=== PATIENT | female | born 1975 | race Caucasian/White ===

== ENCOUNTER 2016-07-11 12:53 | Emergency (ER) | payer OTHER ==
[~2016-07-11] VITALS: Wt 95.3 kg
[~2016-07-11 12:53] MED LIST: 'PARAFON FORTE500 M1 PO; ACID CONTROLLER20 M1 PO; ACIPHEX20 MG PO; ALBUTEROL0.09 MG/A2 IH; ALBUTEROL0.09 MG/A2 INH; AMOXICILLIN500 M2 PO; AMOXICILLIN500 M3 PO; AMOXICILLIN500 MG PO; ANAPROX DS550 MG PO; AUGMENTIN 875-875 MG PO; AUGMENTIN 875875 MG PO; AVPAK AZITHROM250 M1 PO; BACTRIM DS 8001 TA1 PO; CIPRO500 MG PO; CIPROFLOXACIN500 MG PO; CLARITIN10 MG PO; CLINDAMYCIN HC300 MG PO; COMBIVENT1 ARO IH; COMPAZINE10 MG PO; DARVOCET A500 51 TAB PO; DARVOCET N 1001 TAB PO; DO NOT PROFILE T1 EA; DOXYCYCLINE HY100 MG PO; EES400 MG PO; FERROUS SULFAT325 MG PO; FLEXERIL5 MG PO; FLONASE ALLERG9.9 ML NS; Flovent 44 Mcg44 MCG INH; HYDROCODONE BIT1 T11 PO; IBU800 MG PO; KEFLEX500 MG PO; LAMICTAL ODT25 MG MM; LAMICTAL ODT50 MG MM; LIDOCAINE VISC100 ML MM; MACROBID100 M1 PO; MEDROL DOSEPAK4 MG PO; MIRENA52 MG IU; MOTRIN800 MG PO; MULTIPLE VITAMI1 CTB PO; Motrin,Rufen800 MG PO; NAPROSYN500 MG PO; NORCO 325 MG-51 TAB PO; PEN-VK500 MG PO; PENICILLIN VK500 MG PO; PERIDEX 480 ML480 ML PO; PHENERGAN W/ DE30 ML PO; PIROXICAN10 MG PO; PREDNICOT10 MG PO; PREDNICOT20 MG PO; PREDNISONE10 MG PO; PROVENTIL0.09 MG/AC IH; PYRIDIUM200 M1 PO; Peridex 473 ML473 ML PO; ROBITUSSIN AC 110 ML PO; ROBITUSSIN DM 105 ML PO; TESSALON PERLE100 M1 PO; TESSALON PERLE200 MG PO; TORADOL10 MG PO; TRAZODO50 MG PO; TRIMOX500 MG PO; TYLENOL325 M1 PO; ULTRAM50 MG PO; VENTOLIN H0.09 MG/AC INH; VIBRAMYCIN100 MG PO; VICODIN 5/500 505 MG PO; VICODIN ES 7501 TAB PO; ZITHROMAX Z PA250 MG PO; ZITHROMAX Z-PA250 MG PO; ZITHROMAX250 MG PO; ZOFRAN4 MG PO; ZYRTEC10 M3 PO; ZYRTEC10 MG PO
[2016-07-11 13:12] VITALS: BP 150/90
[2016-07-11] MEDS ORDERED: VITAMINS FOR HA1 CAP PO (13:13)
[2016-07-11] MEDS ORDERED: PREDNISONE10 MG PO (13:38)
== END 2016-07-11 13:36 | disposition home or self-care (01) ==
LOC: ED 12:53
DX: L25.9 Unspecified contact dermatitis, unspecified cause (principal); F17.200 Nicotine dependence, unspecified, uncomplicated; Z98.890 Other specified postprocedural states; Z79.899 Other long term (current) drug therapy

== ENCOUNTER 2016-07-29 16:15 | Emergency (ER) | payer OTHER ==
[~2016-07-29] VITALS: Wt 95.3 kg
[~2016-07-29 16:15] MED LIST changes: +VITAMINS FOR HA1 CAP PO
[2016-07-29 16:18] VITALS: BP 142/99
[2016-07-29] MEDS ORDERED: Motrin,Rufen400 MG PO (17:19)
== END 2016-07-29 17:37 | disposition home or self-care (01) ==
LOC: ED 16:15
DX: S93.401A Sprain of unspecified ligament of right ankle, initial encounter (principal); F17.200 Nicotine dependence, unspecified, uncomplicated; Z88.8 Allergy status to other drugs, medicaments and biological substances; Z79.899 Other long term (current) drug therapy; W18.39XA Other fall on same level, initial encounter; Y93.89 Activity, other specified; Y92.89 Other specified places as the place of occurrence of the external cause; Y99.8 Other external cause status

== ENCOUNTER 2016-12-24 14:29 | Emergency (ER) | payer OTHER ==
[~2016-12-24] VITALS: Ht 160 cm; Wt 107.5 kg
[~2016-12-24 14:29] MED LIST changes: +CLINDAMYCIN150 MG PO; +Motrin,Rufen400 MG PO
[2016-12-24 14:34] VITALS: BP 146/84
[2016-12-24 14:46] LABS: BILIRUBIN NEGATIVE (NEGATIVE); BLOOD 3+ (NEGATIVE); CLARITY CLOUDY (CLEAR); COLOR YELLOW (YELLOW); GLUCOSE NEGATIVE (NEGATIVE); KETONE NEGATIVE (NEGATIVE); LEUKO ESTERASE 3+ (NEGATIVE); NITRITE NEGATIVE (NEGATIVE); SPECIFIC GRAVITY <= 1.005 (1.005-1.030); UROBILINOGEN 0.2 E.U./dl (0.2-1.0)
[2016-12-24 14:52] LABS: BACTERIA 4+; WBC TNTC wbc/hpf (0-5)
[2016-12-24] MEDS ORDERED: PYRIDIUM100 MG PO (15:00)
[2016-12-24] MEDS ORDERED: MACROBID100 M1 PO (15:00)
== END 2016-12-24 19:28 | disposition home or self-care (01) ==
LOC: ED 14:29
PROVIDERS: Physician Assistant
DX: N39.0 Urinary tract infection, site not specified (principal); F17.200 Nicotine dependence, unspecified, uncomplicated; Z88.8 Allergy status to other drugs, medicaments and biological substances; Z79.899 Other long term (current) drug therapy

== ENCOUNTER 2017-02-24 19:55 | Emergency (ER) | payer OTHER ==
[~2017-02-24] VITALS: Ht 157.4 cm; Wt 108.9 kg
[~2017-02-24 19:55] MED LIST changes: +PYRIDIUM100 MG PO
[2017-02-24 20:02] VITALS: BP 152/85
[2017-02-24] MEDS ORDERED: LAMICTAL ODT100 MG MM (20:06)
[2017-02-24] MEDS ORDERED: SEROQUEL50 MG PO (20:07)
== END 2017-02-24 20:14 | disposition home or self-care (01) ==
LOC: ED 19:55
DX: S86.911A Strain of unspecified muscle(s) and tendon(s) at lower leg level, right leg, initial encounter (principal); F17.200 Nicotine dependence, unspecified, uncomplicated; Z88.8 Allergy status to other drugs, medicaments and biological substances; X58.XXXA Exposure to other specified factors, initial encounter; Y93.89 Activity, other specified; Y92.89 Other specified places as the place of occurrence of the external cause; Y99.8 Other external cause status

== ENCOUNTER 2017-08-06 15:45 | Emergency (ER) | payer OTHER ==
[~2017-08-06] VITALS: Ht 160 cm; Wt 112.5 kg
[~2017-08-06 15:45] MED LIST changes: +LAMICTAL ODT100 MG MM; +SEROQUEL50 MG PO
[2017-08-06 15:50] VITALS: BP 125/76
[2017-08-06] MEDS ORDERED: PENICILLIN-VK500 MG PO (16:13)
[2017-08-06] MEDS ORDERED: TYLENOL325 M1 PO (16:13)
[2017-08-06] MEDS ORDERED: NAPROSYN500 MG PO (16:13)
== END 2017-08-06 16:16 | disposition home or self-care (01) ==
LOC: ED 15:45
DX: K02.9 Dental caries, unspecified (principal); Z98.890 Other specified postprocedural states; Z79.899 Other long term (current) drug therapy; Z88.8 Allergy status to other drugs, medicaments and biological substances

== ENCOUNTER 2018-04-12 16:19 | Emergency (ER) | payer OTHER ==
[~2018-04-12] VITALS: Ht 157.4 cm; Wt 105.2 kg
[~2018-04-12 16:19] MED LIST changes: +PENICILLIN-VK500 MG PO
[2018-04-12 16:20] VITALS: BP 135/81
[2018-04-12] MEDS ORDERED: CLARITIN10 MG PO (16:31)
[2018-04-12] MEDS ORDERED: PREDNISONE10 MG PO (16:31)
== END 2018-04-12 17:09 | disposition home or self-care (01) ==
LOC: ED 16:19
DX: J20.9 Acute bronchitis, unspecified (principal); R03.0 Elevated blood-pressure reading, without diagnosis of hypertension; F17.200 Nicotine dependence, unspecified, uncomplicated; Z88.8 Allergy status to other drugs, medicaments and biological substances; Z79.2 Long term (current) use of antibiotics; Z79.899 Other long term (current) drug therapy

== ENCOUNTER 2018-11-23 17:57 | Emergency (ER) | payer OTHER ==
[~2018-11-23] VITALS: Ht 160 cm; Wt 102.1 kg
[~2018-11-23 17:57] MED LIST changes: +CYCLOBENZAPRINE10 MG PO; +HYCODAN/HYDROMET5 ML PO
== END 2018-11-23 18:34 | disposition home or self-care (01) ==
LOC: ED 17:57
DX: T16.2XXA Foreign body in left ear, initial encounter (principal); E66.9 Obesity, unspecified; Z88.8 Allergy status to other drugs, medicaments and biological substances; Z79.899 Other long term (current) drug therapy; Z87.891 Personal history of nicotine dependence; X58.XXXA Exposure to other specified factors, initial encounter; Y93.89 Activity, other specified; Y92.89 Other specified places as the place of occurrence of the external cause; Y99.8 Other external cause status

== ENCOUNTER 2019-01-01 18:31 | Emergency (ER) | payer OTHER ==
[~2019-01-01] VITALS: Ht 160 cm; Wt 108.0 kg
[2019-01-01 18:34] VITALS: BP 145/86
[2019-01-01] MEDS ORDERED: ZITHROMAX250 MG PO (19:33)
[2019-01-01] MEDS ORDERED: TESSALON PERLE100 M1 PO (19:33)
== END 2019-01-01 19:39 | disposition home or self-care (01) ==
LOC: ED 18:31
DX: J20.9 Acute bronchitis, unspecified (principal); F17.210 Nicotine dependence, cigarettes, uncomplicated; Z88.8 Allergy status to other drugs, medicaments and biological substances; Z79.899 Other long term (current) drug therapy

== ENCOUNTER 2019-02-01 12:49 | Emergency (ER) | payer OTHER ==
[~2019-02-01] VITALS: Ht 160 cm; Wt 106.6 kg
[2019-02-01 12:49] VITALS: BP 132/87
[2019-02-01] MEDS ORDERED: PREDNISONE20 M1 PO (15:41)
[2019-02-01] MEDS ORDERED: ZITHROMAX500 MG PO (15:41)
== END 2019-02-01 15:48 | disposition home or self-care (01) ==
LOC: ED 12:49
DX: J20.9 Acute bronchitis, unspecified (principal); J45.909 Unspecified asthma, uncomplicated; E11.9 Type 2 diabetes mellitus without complications; F17.200 Nicotine dependence, unspecified, uncomplicated; Z88.8 Allergy status to other drugs, medicaments and biological substances; Z79.899 Other long term (current) drug therapy

== ENCOUNTER 2019-04-08 22:42 | Emergency (ER) | payer OTHER ==
[~2019-04-08] VITALS: Ht 152.4 cm; Wt 107.5 kg
[~2019-04-08 22:42] MED LIST changes: +PREDNISONE20 M1 PO; +ZITHROMAX500 MG PO
[2019-04-08 22:44] VITALS: BP 139/87
[2019-04-09] MEDS ORDERED: PREDNISONE20 M1 PO (00:06)
[2019-04-09] MEDS ORDERED: ZITHROMAX250 MG PO (00:06)
[2019-04-09] MEDS ORDERED: TESSALON PERLE100 M1 PO (00:06)
== END 2019-04-09 00:22 | disposition home or self-care (01) ==
LOC: ED 22:42
DX: J45.909 Unspecified asthma, uncomplicated (principal); I10 Essential (primary) hypertension; Z88.8 Allergy status to other drugs, medicaments and biological substances; Z79.899 Other long term (current) drug therapy

== ENCOUNTER 2020-01-14 03:38 | Emergency (ER) | payer OTHER ==
[~2020-01-14] VITALS: Ht 157.4 cm; Wt 97.5 kg
[2020-01-14 03:46] VITALS: BP 132/76
[2020-01-14 04:50] LABS: BASO # 0.1 10*3/uL (0.0-0.1); BASO % 0.4 % (0.0-1.0); HEMATOCRIT 46.3 % (37.0-47.0); LYMPH # 3.1 10*3/uL (1.3-4.4); LYMPH % 22.3 % (27.0-41.0); MEAN CORPUSCULAR HGB 29.7 pg (27.0-31.0); MEAN PLATELET VOLUME 9.2 fl (9.6-12.3); MONO # 1.5 10*3/uL (0.1-1.0); MONO % 10.8 % (3.0-9.0); NEUT % 65.8 % (47.0-73.0); PLATELET COUNT AUTOMATED 240 10*3/uL (130-400); RED BLOOD COUNT 4.98 10*6/uL (4.10-5.10); WHITE BLOOD COUNT 13.7 10*3/uL (4.8-10.8)
[2020-01-14 05:20] LABS: COLOR Yellow (YELLOW)
[2020-01-14 05:21] LABS: BILIRUBIN Negative; BLOOD Negative (NEGATIVE); CLARITY Cloudy (CLEAR); GLUCOSE Negative; KETONE Negative; LEUKO ESTERASE 2+ (NEGATIVE); NITRITE Negative (NEGATIVE); PH 5.5 (4.5-8.0); SPECIFIC GRAVITY 1.015 (1.001-1.030)
[2020-01-14 05:22] LABS: BACTERIA 1+; EPITHELIAL CELLS TNTC
[2020-01-14 05:42] LABS: BUN 11 mg/dl (7-24); CHLORIDE 105 mmol/L (98-107); POTASSIUM 3.6 mmol/L (3.5-5.1); SODIUM 138 mmol/L (136-145)
== END 2020-01-14 05:15 | disposition left against medical advice (07) ==
LOC: ED 03:38
PROVIDERS: Emergency Medicine Emergency Medical Services
DX: K59.00 Constipation, unspecified (principal); I10 Essential (primary) hypertension; J45.909 Unspecified asthma, uncomplicated; F17.200 Nicotine dependence, unspecified, uncomplicated; Z88.8 Allergy status to other drugs, medicaments and biological substances; Z53.29 Procedure and treatment not carried out because of patient's decision for other reasons; Z79.899 Other long term (current) drug therapy

== ENCOUNTER 2020-03-10 21:02 | Emergency (ER) | payer OTHER ==
[~2020-03-10] VITALS: Ht 160 cm; Wt 102.1 kg
[2020-03-10 21:16] VITALS: BP 135/98
[2020-03-10] MEDS ORDERED: ROBITUSSIN5 ML PO (21:21)
[2020-03-10] MEDS ORDERED: GLUCOPHAGE500 M1 PO (21:22)
[2020-03-10] MEDS ORDERED: TESSALON PERLE100 MG PO (23:43)
== END 2020-03-11 00:30 | disposition home or self-care (01) ==
LOC: ED 21:02
DX: J06.9 Acute upper respiratory infection, unspecified (principal); I10 Essential (primary) hypertension; J45.909 Unspecified asthma, uncomplicated; F17.200 Nicotine dependence, unspecified, uncomplicated; Z88.8 Allergy status to other drugs, medicaments and biological substances; Z79.899 Other long term (current) drug therapy

== ENCOUNTER 2020-05-18 13:18 | Emergency (ER) | payer OTHER ==
[~2020-05-18] VITALS: Ht 160 cm; Wt 97.5 kg
[~2020-05-18 13:18] MED LIST changes: +GLUCOPHAGE500 M1 PO; +ROBITUSSIN5 ML PO; +TESSALON PERLE100 MG PO
[2020-05-18 13:23] VITALS: BP 129/82
[2020-05-18 14:11] LABS: BASO % 0.3 % (0.0-1.0); EOS % 0.1 % (1.0-4.0); HEMATOCRIT 47.4 % (37.0-47.0); LYMPH # 2.5 10*3/uL (1.3-4.4); LYMPH % 15.7 % (27.0-41.0); MEAN CORPUSCULAR HGB 30.1 pg (27.0-31.0); MEAN CORPUSCULAR HGB CONC 33.1 g/dl (33.0-37.0); MEAN PLATELET VOLUME 9.1 fl (9.6-12.3); MONO # 1.1 10*3/uL (0.1-1.0); MONO % 6.6 % (3.0-9.0); NEUT # 12.2 10*3/uL (2.3-7.9); NEUT % 76.8 % (47.0-73.0); PLATELET COUNT AUTOMATED 277 10*3/uL (130-400); RED BLOOD COUNT 5.21 10*6/uL (4.10-5.10); RED CELL DISTRI WIDTH 12.5 % (0-14.5); WHITE BLOOD COUNT 15.9 10*3/uL (4.8-10.8)
[2020-05-18 14:27] LABS: ALBUMIN 3.4 gm/dl (3.1-4.5); ALKALINE PHOSPHATASE 62 U/L (45-117); BUN 8 mg/dl (7-24); CHLORIDE 104 mmol/L (98-107); CREATININE 0.71 mg/dL (0.55-1.02); POTASSIUM 4.3 mmol/L (3.5-5.1); SGOT/AST 12 IU/L (3-35); SGPT/ALT 26 U/L (12-78); SODIUM 136 mmol/L (136-145); TOTAL PROTEIN 8.2 gm/dL (6.4-8.2)
[2020-05-18 15:46] LABS: BILIRUBIN Negative (Negative); BLOOD 1+ (Negative); CLARITY Cloudy (Clear); COLOR Dark Yellow (Yellow); GLUCOSE Negative (Negative); KETONE Trace (Negative); LEUKO ESTERASE 2+ (Negative); NITRITE Negative (Negative); PH 5.5 (4.5-8.0); SPECIFIC GRAVITY 1.025 (1.001-1.030)
[2020-05-18 16:03] LABS: BACTERIA 1+; WBC 21-30 wbc/hpf (0-5)
[2020-05-18] MEDS ORDERED: KRISTALOSE10 GM PO (16:21)
[2020-05-18] MEDS ORDERED: CEFUROXIME AXE500 MG PO (16:21)
== END 2020-05-18 16:40 | disposition home or self-care (01) ==
LOC: ED 13:18
PROVIDERS: Nurse Practitioner
DX: N39.0 Urinary tract infection, site not specified (principal); K59.00 Constipation, unspecified; E11.9 Type 2 diabetes mellitus without complications; F17.200 Nicotine dependence, unspecified, uncomplicated; Z88.8 Allergy status to other drugs, medicaments and biological substances; Z79.899 Other long term (current) drug therapy; Z98.890 Other specified postprocedural states

== ENCOUNTER 2020-07-10 21:40 | Emergency (ER) | payer OTHER ==
[~2020-07-10] VITALS: Ht 160 cm; Wt 106.6 kg
[~2020-07-10 21:40] MED LIST changes: +CEFUROXIME AXE500 MG PO; +KRISTALOSE10 GM PO
[2020-07-10 21:52] VITALS: BP 146/82
[2020-07-10 22:59] LABS: BASO # 0.1 10*3/uL (0.0-0.1); BASO % 0.5 % (0.0-1.0); HEMATOCRIT 43.9 % (37.0-47.0); LYMPH % 24.9 % (27.0-41.0); MEAN CELL VOLUME 91.8 fl (81.0-99.0); MEAN CORPUSCULAR HGB 30.3 pg (27.0-31.0); MEAN PLATELET VOLUME 9.2 fl (9.6-12.3); MONO # 1.3 10*3/uL (0.1-1.0); MONO % 7.9 % (3.0-9.0); NEUT # 10.5 10*3/uL (2.3-7.9); NEUT % 66.2 % (47.0-73.0); PLATELET COUNT AUTOMATED 261 10*3/uL (130-400); RED BLOOD COUNT 4.78 10*6/uL (4.10-5.10); RED CELL DISTRI WIDTH 11.9 % (0-14.5); WHITE BLOOD COUNT 15.9 10*3/uL (4.8-10.8)
[2020-07-10 23:16] LABS: ALBUMIN 3.1 gm/dl (3.1-4.5); ALKALINE PHOSPHATASE 54 U/L (45-117); BUN 8 mg/dl (7-24); CHLORIDE 103 mmol/L (98-107); CREATININE 0.67 mg/dL (0.55-1.02); POTASSIUM 3.3 mmol/L (3.5-5.1); SGOT/AST 19 IU/L (3-35); SGPT/ALT 26 U/L (12-78); SODIUM 139 mmol/L (136-145); TOTAL PROTEIN 7.5 gm/dL (6.4-8.2)
[2020-07-10 23:18] LABS: BILIRUBIN Negative (Negative); BLOOD Trace-Intact (Negative); CLARITY Cloudy (Clear); COLOR Yellow (Yellow); GLUCOSE Negative (Negative); KETONE Trace (Negative); LEUKO ESTERASE 2+ (Negative); NITRITE Positive (Negative); PH 6.5 (4.5-8.0); UROBILINOGEN 0.2 E.U./dl (0.0-1.0)
[2020-07-10 23:40] LABS: BACTERIA 2+; WBC 21-30 wbc/hpf (0-5)
[2020-07-10 23:41] LABS: EPITHELIAL CELLS 16-20
== END 2020-07-10 23:52 | disposition left against medical advice (07) ==
LOC: ED 21:40
PROVIDERS: Emergency Medicine
DX: R11.10 Vomiting, unspecified (principal); R19.7 Diarrhea, unspecified; I10 Essential (primary) hypertension; J45.909 Unspecified asthma, uncomplicated; F17.200 Nicotine dependence, unspecified, uncomplicated; Z88.8 Allergy status to other drugs, medicaments and biological substances; Z79.899 Other long term (current) drug therapy; Z98.890 Other specified postprocedural states

== ENCOUNTER 2020-08-30 17:45 | Emergency (ER) | payer OTHER ==
[~2020-08-30] VITALS: Wt 90.7 kg
[2020-08-30 18:00] VITALS: BP 141/80
[2020-08-30] MEDS ORDERED: FLONASE ALLERG9.9 ML NAS (18:12)
== END 2020-08-30 18:17 | disposition home or self-care (01) ==
LOC: ED 17:45
DX: J32.9 Chronic sinusitis, unspecified (principal); F17.200 Nicotine dependence, unspecified, uncomplicated; Z88.8 Allergy status to other drugs, medicaments and biological substances; Z79.899 Other long term (current) drug therapy; Z79.84 Long term (current) use of oral hypoglycemic drugs; Z98.890 Other specified postprocedural states

== ENCOUNTER 2021-02-28 22:32 | Emergency (ER) | payer OTHER ==
[~2021-02-28] VITALS: Ht 160 cm; Wt 103.0 kg
[~2021-02-28 22:32] MED LIST changes: +FLONASE ALLERG9.9 ML NAS
[2021-02-28 22:45] VITALS: BP 136/77
[2021-02-28] MEDS ORDERED: NAPROXEN250 MG PO (23:10)
== END 2021-02-28 23:39 | disposition home or self-care (01) ==
LOC: ED 22:32
DX: M25.532 Pain in left wrist (principal); Z88.8 Allergy status to other drugs, medicaments and biological substances; Z79.899 Other long term (current) drug therapy

== ENCOUNTER 2021-04-28 18:21 | Emergency (ER) | payer OTHER ==
[~2021-04-28 18:21] MED LIST changes: +NAPROXEN250 MG PO
[2021-04-28 18:43] VITALS: BP 145/86
== END 2021-04-28 20:57 | disposition left against medical advice (07) ==
LOC: ED 18:21
DX: R05.9 Cough, unspecified (principal); Z20.822 Contact with and (suspected) exposure to COVID-19; Z88.8 Allergy status to other drugs, medicaments and biological substances; Z79.899 Other long term (current) drug therapy; F17.200 Nicotine dependence, unspecified, uncomplicated

== ENCOUNTER 2021-05-22 02:04 | Emergency (ER) | payer OTHER ==
[~2021-05-22] VITALS: Ht 160 cm; Wt 102.1 kg
[2021-05-22 02:14] VITALS: BP 150/91
[2021-05-22] MEDS ORDERED: AMOXICILLIN500 M2 PO (03:10)
== END 2021-05-22 03:18 | disposition home or self-care (01) ==
LOC: ED 02:04
DX: T85.848A Pain due to other internal prosthetic devices, implants and grafts, initial encounter (principal); K04.7 Periapical abscess without sinus; F17.200 Nicotine dependence, unspecified, uncomplicated; Z88.8 Allergy status to other drugs, medicaments and biological substances; Z79.899 Other long term (current) drug therapy; Z98.890 Other specified postprocedural states; Y92.89 Other specified places as the place of occurrence of the external cause

== ENCOUNTER 2021-06-16 18:55 | Emergency (ER) | payer OTHER ==
[~2021-06-16] VITALS: Ht 165.1 cm; Wt 90.7 kg
[2021-06-16 19:10] VITALS: BP 156/90
[2021-06-16] MEDS ORDERED: BENZONATATE100 M1 PO (20:47)
[2021-06-16] MEDS ORDERED: CLARITIN10 MG PO (20:47)
== END 2021-06-16 20:49 | disposition home or self-care (01) ==
LOC: ED 18:55
DX: J06.9 Acute upper respiratory infection, unspecified (principal); F17.200 Nicotine dependence, unspecified, uncomplicated; Z98.890 Other specified postprocedural states; Z88.8 Allergy status to other drugs, medicaments and biological substances

== ENCOUNTER 2021-07-24 17:47 | Emergency (ER) | payer OTHER ==
[~2021-07-24] VITALS: Wt 99.8 kg
[~2021-07-24 17:47] MED LIST changes: +BENZONATATE100 M1 PO
[2021-07-24 18:13] VITALS: BP 149/96
== END 2021-07-24 21:54 | disposition left against medical advice (07) ==
LOC: ED 17:47
DX: Z53.21 Procedure and treatment not carried out due to patient leaving prior to being seen by health care provider (principal)

== ENCOUNTER 2021-08-01 14:44 | Emergency (ER) | payer OTHER ==
[~2021-08-01] VITALS: Wt 99.8 kg
[2021-08-01 14:58] VITALS: BP 162/90
== END 2021-08-01 19:24 | disposition home or self-care (01) ==
LOC: ED 14:44
DX: S20.219A Contusion of unspecified front wall of thorax, initial encounter (principal); F17.200 Nicotine dependence, unspecified, uncomplicated; Z98.890 Other specified postprocedural states; Z79.899 Other long term (current) drug therapy; Z88.8 Allergy status to other drugs, medicaments and biological substances; V49.59XA Passenger injured in collision with other motor vehicles in traffic accident, initial encounter; Y93.89 Activity, other specified; Y92.413 State road as the place of occurrence of the external cause; Y99.9 Unspecified external cause status

== ENCOUNTER 2021-08-25 20:25 | Emergency (ER) | payer OTHER ==
[~2021-08-25] VITALS: Ht 160 cm; Wt 102.1 kg
[2021-08-25 20:49] VITALS: BP 162/84
[2021-08-25] MEDS ORDERED: PENICILLIN VK500 MG PO (20:56)
== END 2021-08-25 22:38 | disposition home or self-care (01) ==
LOC: ED 20:25
DX: K02.9 Dental caries, unspecified (principal); Z79.899 Other long term (current) drug therapy; Z88.8 Allergy status to other drugs, medicaments and biological substances; Z98.890 Other specified postprocedural states

== ENCOUNTER 2021-11-10 16:27 | Emergency (ER) | payer OTHER ==
[2021-11-10 16:42] VITALS: BP 153/97
[2021-11-10] MEDS ORDERED: INDOMETHACIN25 M1 PO (16:58)
== END 2021-11-10 17:23 | disposition home or self-care (01) ==
LOC: ED 16:27
DX: M10.9 Gout, unspecified (principal); E11.9 Type 2 diabetes mellitus without complications; E66.9 Obesity, unspecified; I10 Essential (primary) hypertension; J45.909 Unspecified asthma, uncomplicated; Z88.8 Allergy status to other drugs, medicaments and biological substances; Z79.899 Other long term (current) drug therapy; Z98.890 Other specified postprocedural states

== ENCOUNTER 2022-02-09 20:50 | Emergency (ER) | payer OTHER ==
[~2022-02-09] VITALS: Ht 160 cm; Wt 99.8 kg
[~2022-02-09 20:50] MED LIST changes: +INDOMETHACIN25 M1 PO
[2022-02-09 20:56] VITALS: BP 150/98
[2022-02-09 21:35] LABS: BASO # 0.1 10*3/uL (0.0-0.1); BASO % 0.5 % (0.0-1.0); EOS % 0.1 % (1.0-4.0); HEMATOCRIT 43.8 % (37.0-47.0); LYMPH # 3.5 10*3/uL (1.3-4.4); LYMPH % 26.2 % (27.0-41.0); MEAN CELL VOLUME 90.3 fl (81.0-99.0); MEAN CORPUSCULAR HGB 31.1 pg (27.0-31.0); MEAN CORPUSCULAR HGB CONC 34.5 g/dl (33.0-37.0); MEAN PLATELET VOLUME 9.3 fl (9.6-12.3); MONO # 1.4 10*3/uL (0.1-1.0); MONO % 10.3 % (3.0-9.0); NEUT # 8.4 10*3/uL (2.3-7.9); NEUT % 62.5 % (47.0-73.0); PLATELET COUNT AUTOMATED 245 10*3/uL (130-400); RED BLOOD COUNT 4.85 10*6/uL (4.10-5.10); WHITE BLOOD COUNT 13.5 10*3/uL (4.8-10.8)
[2022-02-09 21:52] LABS: ALKALINE PHOSPHATASE 49 U/L (45-117); BUN 7 mg/dl (7-24); CHLORIDE 104 mmol/L (98-107); CREATININE 0.55 mg/dL (0.55-1.02); LIPASE 123 U/L (73-393); POTASSIUM 3.8 mmol/L (3.5-5.1); SGOT/AST 21 IU/L (3-35); SGPT/ALT 25 U/L (12-78); SODIUM 138 mmol/L (136-145); TOTAL PROTEIN 7.5 gm/dL (6.4-8.2)
[2022-02-09 22:58] LABS: BILIRUBIN Negative (Negative); BLOOD Negative (Negative); CLARITY Clear (Clear); COLOR Yellow (Yellow); GLUCOSE Negative (Negative); KETONE Negative (Negative); LEUKO ESTERASE Negative (Negative); NITRITE Negative (Negative); PH 6.5 (4.5-8.0); SPECIFIC GRAVITY <= 1.005 (1.001-1.030); UROBILINOGEN 0.2 E.U./dl (0.0-1.0)
[2022-02-09 23:03] LABS: WBC 0-2 wbc/hpf (0-5)
== END 2022-02-09 23:23 | disposition home or self-care (01) ==
LOC: ED 20:50
PROVIDERS: Nurse Practitioner Family
DX: K59.00 Constipation, unspecified (principal); Z88.8 Allergy status to other drugs, medicaments and biological substances; Z79.899 Other long term (current) drug therapy; Z98.890 Other specified postprocedural states

== ENCOUNTER → 2022-02-12 | Outpatient (CLI) | payer OTHER | END | disposition short-term general hospital (02) | LOC: RAD 09:26 | PROVIDERS: ATTEND Nurse Practitioner Primary Care | DX: M25.552 Pain in left hip (principal) ==

== ENCOUNTER 2022-02-22 08:55 | Emergency (ER) | payer OTHER ==
[~2022-02-22] VITALS: Ht 160 cm; Wt 103.0 kg
[2022-02-22 09:25] VITALS: BP 148/88
[2022-02-22] MEDS ORDERED: ZITHROMAX250 MG PO (10:30)
== END 2022-02-22 10:45 | disposition home or self-care (01) ==
LOC: ED 08:55
DX: J06.9 Acute upper respiratory infection, unspecified (principal); F17.210 Nicotine dependence, cigarettes, uncomplicated; Z88.8 Allergy status to other drugs, medicaments and biological substances; Z79.899 Other long term (current) drug therapy; Z98.890 Other specified postprocedural states

== ENCOUNTER 2022-07-04 12:20 | Emergency (ER) | payer OTHER ==
[~2022-07-04] VITALS: Ht 160 cm; Wt 106.6 kg
[2022-07-04 12:47] VITALS: BP 141/92
[2022-07-04] MEDS ORDERED: PENICILLIN-VK500 MG PO (12:54)
[2022-07-04] MEDS ORDERED: Motrin,Rufen800 MG PO (12:58)
== END 2022-07-04 13:00 | disposition home or self-care (01) ==
LOC: ED 12:20
DX: K08.89 Other specified disorders of teeth and supporting structures (principal); Z88.8 Allergy status to other drugs, medicaments and biological substances; Z79.899 Other long term (current) drug therapy; Z98.890 Other specified postprocedural states

== ENCOUNTER → 2022-09-18 | Outpatient (CLI) | payer OTHER | END | disposition home or self-care (01) | LOC: MAMMO 08:05 | PROVIDERS: ATTEND Nurse Practitioner | DX: Z12.31 Encounter for screening mammogram for malignant neoplasm of breast (principal); N64.9 Disorder of breast, unspecified ==

== ENCOUNTER 2022-10-09 12:15 | Emergency (ER) | payer OTHER ==
[~2022-10-09] VITALS: Wt 99.8 kg
[2022-10-09 12:51] VITALS: BP 139/81
[2022-10-09] MEDS ORDERED: DECADRON4 MG PO (13:54)
[2022-10-09] MEDS ORDERED: MUCINEX DM 30/61 TAB PO (13:54)
== END 2022-10-09 14:03 | disposition home or self-care (01) ==
LOC: ED 12:15
DX: R05.9 Cough, unspecified (principal); R09.81 Nasal congestion; D64.9 Anemia, unspecified; I10 Essential (primary) hypertension; J45.909 Unspecified asthma, uncomplicated; Z88.8 Allergy status to other drugs, medicaments and biological substances; Z98.890 Other specified postprocedural states

== ENCOUNTER 2022-10-18 18:49 | Emergency (ER) | payer OTHER ==
[~2022-10-18 18:49] MED LIST changes: +DECADRON4 MG PO; +MUCINEX DM 30/61 TAB PO
[2022-10-18 22:05] LABS: HEMATOCRIT 40.7 % (37.0-47.0); RED BLOOD COUNT 4.35 10*6/uL (4.10-5.10)
[2022-10-18 22:06] LABS: LYMPH % 30.6 % (27.0-41.0); MEAN CELL VOLUME 93.6 fl (81.0-99.0); MEAN CORPUSCULAR HGB CONC 34.2 g/dl (33.0-37.0); MEAN PLATELET VOLUME 9.6 fl (9.6-12.3); NEUT % 58.2 % (47.0-73.0); PLATELET COUNT AUTOMATED 152 10*3/uL (130-400); RED CELL DISTRI WIDTH 12.3 % (0-14.5)
[2022-10-18 22:07] LABS: BASO % 0.2 % (0.0-1.0); MONO # 1.2 10*3/uL (0.1-1.0); MONO % 9.2 % (3.0-9.0); NEUT # 7.5 10*3/uL (2.3-7.9)
[2022-10-18 22:09] LABS: BUN 10 mg/dl (9-23)
[2022-10-18 22:10] LABS: ALKALINE PHOSPHATASE 48 U/L (46-116); CHLORIDE 104 mmol/L (98-107); POTASSIUM 3.6 mmol/L (3.4-5.1); SGPT/ALT 41 U/L (10-49)
== END 2022-10-18 19:03 | disposition home or self-care (01) ==
LOC: ED 18:49
PROVIDERS: Internal Medicine
DX: R60.9 Edema, unspecified (principal); Z88.8 Allergy status to other drugs, medicaments and biological substances; Z98.890 Other specified postprocedural states

== ENCOUNTER 2023-01-14 14:18 | Emergency (ER) | payer OTHER ==
[~2023-01-14] VITALS: Wt 108.9 kg
[2023-01-14 15:04] VITALS: BP 144/87
== END 2023-01-14 16:37 | disposition home or self-care (01) ==
LOC: ED 14:18
DX: M65.4 Radial styloid tenosynovitis [de Quervain] (principal); M25.521 Pain in right elbow; D64.9 Anemia, unspecified; I10 Essential (primary) hypertension; J45.909 Unspecified asthma, uncomplicated; Z88.8 Allergy status to other drugs, medicaments and biological substances; Z98.890 Other specified postprocedural states

== ENCOUNTER 2023-02-17 09:40 | Emergency (ER) | payer OTHER ==
[~2023-02-17] VITALS: Ht 157.4 cm; Wt 99.8 kg
[2023-02-17] MEDS ORDERED: OSTERA TABLET1 EACH PO (09:55)
[2023-02-17 09:56] VITALS: BP 122/85
[2023-02-17] MEDS ORDERED: NAPROXEN250 MG PO (11:06)
== END 2023-02-17 11:07 | disposition home or self-care (01) ==
LOC: ED 09:40
DX: M65.4 Radial styloid tenosynovitis [de Quervain] (principal); D64.9 Anemia, unspecified; I10 Essential (primary) hypertension; J45.909 Unspecified asthma, uncomplicated; Z88.8 Allergy status to other drugs, medicaments and biological substances; Z98.890 Other specified postprocedural states; Z87.891 Personal history of nicotine dependence

== ENCOUNTER 2023-04-09 09:13 | Emergency (ER) | payer OTHER ==
[~2023-04-09] VITALS: Ht 160 cm; Wt 99.8 kg
[~2023-04-09 09:13] MED LIST changes: +OSTERA TABLET1 EACH PO
[2023-04-09 09:22] VITALS: BP 134/87
[2023-04-09] MEDS ORDERED: JANUVIA25 MG PO (09:24)
[2023-04-09] MEDS ORDERED: AMOX-CLAV 875-1 EACH PO (10:22)
== END 2023-04-09 10:25 | disposition home or self-care (01) ==
LOC: ED 09:13
DX: K04.7 Periapical abscess without sinus (principal); D64.9 Anemia, unspecified; I10 Essential (primary) hypertension; J45.909 Unspecified asthma, uncomplicated; Z88.8 Allergy status to other drugs, medicaments and biological substances; Z98.890 Other specified postprocedural states; F17.210 Nicotine dependence, cigarettes, uncomplicated

== ENCOUNTER → 2023-08-18 | Outpatient (CLI) | payer OTHER ==
[~2023-08-18] MED LIST changes: +AMOX-CLAV 875-1 EACH PO; +JANUVIA25 MG PO
[2023-08-18 13:12] LABS: ALKALINE PHOSPHATASE 45 U/L (46-116); BUN 5 mg/dl (9-23); CHLORIDE 104 mmol/L (98-107); POTASSIUM 4.1 mmol/L (3.4-5.1); SGPT/ALT 19 U/L (5-49); TOTAL PROTEIN 7.5 gm/dL (6.0-8.0)
== END | disposition home or self-care (01) ==
LOC: LAB 12:04
PROVIDERS: ATTEND Orthopaedic Surgery
DX: R53.83 Other fatigue (principal); M25.539 Pain in unspecified wrist

== ENCOUNTER → 2023-11-24 | Outpatient (CLI) | payer OTHER | END | disposition home or self-care (01) | LOC: MAMMO 14:43 | PROVIDERS: ATTEND Nurse Practitioner | DX: Z12.31 Encounter for screening mammogram for malignant neoplasm of breast (principal) ==

== ENCOUNTER 2024-08-14 18:12 | Emergency (ER) | payer OTHER ==
[~2024-08-14] VITALS: Ht 160 cm; Wt 99.8 kg
[2024-08-14 18:34] VITALS: BP 149/94
[2024-08-14] MEDS ORDERED: AMOX-CLAV 875-1 EACH PO (18:39)
== END 2024-08-14 18:48 | disposition home or self-care (01) ==
LOC: ED 18:12
DX: J02.9 Acute pharyngitis, unspecified (principal); Z88.8 Allergy status to other drugs, medicaments and biological substances; Z79.899 Other long term (current) drug therapy; Z79.84 Long term (current) use of oral hypoglycemic drugs; Z98.890 Other specified postprocedural states

== ENCOUNTER 2024-09-10 20:11 | Emergency (ER) | payer OTHER ==
[~2024-09-10] VITALS: Ht 157.4 cm; Wt 102.1 kg
[2024-09-10 20:34] VITALS: BP 146/86
[2024-09-10] MEDS ORDERED: Albuterol Sulfate 2.5 MG/3 ML VIAL NEB ONE (20:50)
== END 2024-09-10 22:39 | disposition home or self-care (01) ==
LOC: ED 20:11
DX: B34.9 Viral infection, unspecified (principal); Z20.822 Contact with and (suspected) exposure to COVID-19; E11.9 Type 2 diabetes mellitus without complications; J45.909 Unspecified asthma, uncomplicated; F17.290 Nicotine dependence, other tobacco product, uncomplicated; Z88.8 Allergy status to other drugs, medicaments and biological substances; Z79.899 Other long term (current) drug therapy; Z79.84 Long term (current) use of oral hypoglycemic drugs; Z98.890 Other specified postprocedural states

== ENCOUNTER 2024-10-01 17:27 | Emergency (ER) | payer OTHER ==
[~2024-10-01] VITALS: Ht 157.4 cm; Wt 102.1 kg
[2024-10-01 17:39] VITALS: BP 139/104
[2024-10-01] MEDS ORDERED: Albuterol Sulf/Ipratropium 3 ML VIAL NEB ONE (18:00)
[2024-10-01] MEDS ORDERED: AVPAK AZITHROM250 MG PO (18:16)
== END 2024-10-01 18:21 | disposition home or self-care (01) ==
LOC: ED 17:27
DX: J40 Bronchitis, not specified as acute or chronic (principal); F17.290 Nicotine dependence, other tobacco product, uncomplicated; Z88.8 Allergy status to other drugs, medicaments and biological substances; Z79.899 Other long term (current) drug therapy; Z98.890 Other specified postprocedural states

== ENCOUNTER 2025-01-27 13:11 | Emergency (ER) | payer OTHER ==
[~2025-01-27] VITALS: Ht 157.4 cm; Wt 102.1 kg
[~2025-01-27 13:11] MED LIST changes: +AVPAK AZITHROM250 MG PO
[2025-01-27 13:18] VITALS: BP 137/84
[2025-01-27 13:51] LABS: BASO # 0.1 10*3/uL (0.0-0.1); BASO % 0.5 % (0.0-1.0); EOS # 0.0 10*3/uL (0.0-0.4); EOS % 0.1 % (1.0-4.0); MEAN CELL VOLUME 90.6 fl (81.0-99.0); MEAN CORPUSCULAR HGB 30.3 pg (27.0-31.0); MEAN PLATELET VOLUME 9.6 fl (9.6-12.3); MONO # 1.1 10*3/uL (0.1-1.0); MONO % 8.5 % (3.0-9.0); NEUT # 8.1 10*3/uL (2.3-7.9); NEUT % 62.7 % (47.0-73.0); NUCLEATED RED BLOOD CELL 0.0 % (0.0-0.0); NUCLEATED RED BLOOD CELL 0.0 10*3/uL (0.0-0.0); PLATELET COUNT AUTOMATED 181 10*3/uL (130-400); RED CELL DISTRI WIDTH 11.9 % (0-14.5)
[2025-01-27 14:14] LABS: BUN 6 mg/dl (9-23)
[2025-01-27] MEDS ORDERED: PREDNISONE50 MG PO (14:29)
[2025-01-27] MEDS ORDERED: ZITHROMAX250 MG PO (14:29)
[2025-01-27] MEDS ORDERED: predniSONE 20 MG TAB PO ONE (14:30)
[2025-01-27] MEDS ORDERED: AZITHROMYCIN 250 MG TAB PO ONE (14:30)
== END 2025-01-27 14:42 | disposition home or self-care (01) ==
LOC: ED 13:11
PROVIDERS: Nurse Practitioner Family
DX: J98.4 Other disorders of lung (principal); I10 Essential (primary) hypertension; Z20.822 Contact with and (suspected) exposure to COVID-19; Z79.899 Other long term (current) drug therapy; Z88.8 Allergy status to other drugs, medicaments and biological substances; Z98.890 Other specified postprocedural states

== ENCOUNTER 2025-02-10 17:41 | Emergency (ER) | payer OTHER ==
[~2025-02-10] VITALS: Ht 160 cm; Wt 95.3 kg
[~2025-02-10 17:41] MED LIST changes: +PREDNISONE50 MG PO
[2025-02-10 17:59] VITALS: BP 154/98
[2025-02-10] MEDS ORDERED: SODIUM CHLORIDE 0.9% 1,000 ML IV ONE (18:05)
[2025-02-10] MEDS ORDERED: Ondansetron Hydrochloride 4 MG/2 ML VIAL IV ONE (18:05)
[2025-02-10] MEDS ORDERED: fentaNYL CITRATE/PF 50 MCG/ML SYRINGE IV ONE (18:05)
[2025-02-10 18:18] LABS: MEAN CELL VOLUME 90.1 fl (81.0-99.0); MEAN CORPUSCULAR HGB 31.0 pg (27.0-31.0); MEAN PLATELET VOLUME 9.6 fl (9.6-12.3); NUCLEATED RED BLOOD CELL 0.0 % (0.0-0.0); NUCLEATED RED BLOOD CELL 0.0 10*3/uL (0.0-0.0); PLATELET COUNT AUTOMATED 197 10*3/uL (130-400); RED CELL DISTRI WIDTH 11.8 % (0-14.5)
[2025-02-10 18:20] LABS: MANUAL DIFF REFLEX YES
[2025-02-10 18:36] LABS: BILIRUBIN Negative (Negative); BLOOD Negative (Negative); CLARITY Clear (Clear); COLOR Yellow (Yellow); KETONE Negative (Negative); LEUKO ESTERASE Negative (Negative); NITRITE Negative (Negative); PH 5.0 (4.5-8.0); SPECIFIC GRAVITY >= 1.030 (1.001-1.030); UROBILINOGEN 0.2 E.U./dl (0.0-1.0)
[2025-02-10 18:41] LABS: PLATELET SUFFICIENCY NORMAL (NORMAL)
[2025-02-10 18:46] LABS: BACTERIA TRACE; MUCOUS 1+; RBC 0-2 rbc/hpf (0-2)
[2025-02-10 18:51] LABS: BUN 7 mg/dl (9-23); SGPT/ALT 30 U/L (5-49)
== END 2025-02-10 19:47 | disposition home or self-care (01) ==
LOC: ED 17:41
PROVIDERS: Emergency Medicine
DX: K80.50 Calculus of bile duct without cholangitis or cholecystitis without obstruction (principal); R10.11 Right upper quadrant pain; Z98.890 Other specified postprocedural states; Z88.1 Allergy status to other antibiotic agents

== ENCOUNTER 2025-02-19 15:11 | Emergency (ER) | payer OTHER ==
[~2025-02-19] VITALS: Ht 208.2 cm; Wt 95.3 kg
[2025-02-19 15:26] VITALS: BP 171/92
[2025-02-19] MEDS ORDERED: AMOX-CLAV 875-1 EACH PO (15:32)
== END 2025-02-19 15:42 | disposition home or self-care (01) ==
LOC: ED 15:11
DX: K02.9 Dental caries, unspecified (principal); I10 Essential (primary) hypertension; J45.909 Unspecified asthma, uncomplicated; Z98.890 Other specified postprocedural states; Z87.440 Personal history of urinary (tract) infections; Z88.1 Allergy status to other antibiotic agents

== ENCOUNTER 2025-03-28 18:20 | Emergency (ER) | payer OTHER ==
[~2025-03-28] VITALS: Ht 160 cm; Wt 99.8 kg
[2025-03-28 18:27] VITALS: BP 142/79
[2025-03-28] MEDS ORDERED: CEFDINIR300 MG PO (18:46)
[2025-03-28] MEDS ORDERED: PREDNISONE20 M1 PO (18:46)
[2025-03-28] MEDS ORDERED: GUAIFENESIN AC473 M1 PO (18:46)
== END 2025-03-28 19:03 | disposition home or self-care (01) ==
LOC: ED 18:20
DX: H66.92 Otitis media, unspecified, left ear (principal); I10 Essential (primary) hypertension; J45.909 Unspecified asthma, uncomplicated; Z98.890 Other specified postprocedural states; Z88.8 Allergy status to other drugs, medicaments and biological substances; Z87.440 Personal history of urinary (tract) infections